=== PATIENT | male | born 1940 | race Caucasian/White ===

== ENCOUNTER 2017-05-22 11:42 | Emergency (ER) | payer OTHER ==
[~2017-05-22] VITALS: Ht 182.9 cm; Wt 99.5 kg
[~2017-05-22 11:42] MED LIST: AMLO5TAB2 PO; LISI-167 PO; LISI-170 PO; LOSA50TA2 PO
[2017-05-22] MEDS ORDERED: DIPH,PERTUSS(ACELL),TET VAC/PF 0.5 ML IM-VACC ONE ×2 (12:24→12:30)
[2017-05-22] MEDS ORDERED: L.E.T SOLUTION TP ONE ×2 (12:24→12:30)
[2017-05-22] MEDS ORDERED: BACITRACIN ZINC OINT 500U/GM, 0.9 GM ONE (13:32)
[2017-05-22 13:46] VITALS: BP 149/89
== END 2017-05-22 13:49 | disposition home or self-care (01) ==
LOC: ED 13:43
DX: S22.42XA Multiple fractures of ribs, left side, initial encounter for closed fracture (principal); S70.311A Abrasion, right thigh, initial encounter; S50.312A Abrasion of left elbow, initial encounter; S60.512A Abrasion of left hand, initial encounter; S70.312A Abrasion, left thigh, initial encounter; I10 Essential (primary) hypertension; V18.4XXA Pedal cycle driver injured in noncollision transport accident in traffic accident, initial encounter; Y93.55 Activity, bike riding; Y92.488 Other paved roadways as the place of occurrence of the external cause; Y99.8 Other external cause status
CPT/HCPCS: 71020; 90471; 90715

== ENCOUNTER 2018-07-23 07:56 | Day surgery (SDC) | payer OTHER ==
[~2018-07-23] VITALS: Ht 182.9 cm; Wt 96.4 kg
[~2018-07-23 07:56] MED LIST changes: -AMLO5TAB2 PO; +AMLO5TAB7 PO; +BUPIVACAINE/PF-EPI 0.5% 1:200K ONE; +CAYE450C4 PO; +CINN500C2 PO; +GARL10002 PO; +LOSA50TA7 PO; +NIAC500T85 PO; +Turmeric PO; +UBID100C24 PO
[2018-07-23 08:16] VITALS: BP 169/100
[2018-07-23] MEDS ORDERED: LACTATED RINGERS 1,000 ML IV SCH (08:20)
[2018-07-23] MEDS ORDERED: GABAPENTIN 300 MG CAPSULE PO ONE (08:30)
[2018-07-23] MEDS ORDERED: SCOPOLAMINE PATCH, 1.5MG PATCH.TD72 TD ONE (08:30)
[2018-07-23] MEDS ORDERED: ONDANSETRON ODT 8 MG PO ONE (08:30)
[2018-07-23] MEDS ORDERED: ACETAMINOPHEN 500 MG TABLET PO ONE (08:30)
[2018-07-23] MEDS ORDERED: FENTANYL PF 100 MCG/2ML ONE (09:06)
[2018-07-23] MEDS ORDERED: MEPERIDINE/PF 25MG/0.5ML IVPush PRN (10:30)
[2018-07-23] MEDS ORDERED: ONDANSETRON ODT 8 MG PO PRN (10:30)
[2018-07-23] MEDS ORDERED: OXYcodone 5 MG/5 ML ORAL.SOL UDC PO PRN (10:30)
[2018-07-23] MEDS ORDERED: ONDANSETRON 2MG/ML, 2ML IV PRN (10:30)
[2018-07-23] MEDS ORDERED: PROMETHAZINE 25 MG SUPP PR PRN (10:30)
[2018-07-23] MEDS ORDERED: PROMETHAZINE 25 MG/ML, 1ML IV PRN (10:30)
[2018-07-23] MEDS ORDERED: MORPHINE SULFATE 4 MG/ML, 1ML IVPush PRN (10:30)
[2018-07-23] MEDS ORDERED: FENTANYL PF 100 MCG/2ML IV PRN (10:30)
[2018-07-23] MEDS ORDERED: SUCCINYLCHOLINE 20 MG/ML, 10ML ONE (10:40)
[2018-07-23] MEDS ORDERED: ROCURONIUM 10MG/ML,5ML ONE (10:40)
[2018-07-23] MEDS ORDERED: GLYCOPYRROLATE 0.2MG/1ML, 5ML ONE (10:40)
[2018-07-23] MEDS ORDERED: DEXAMETHASONE 4 MG/ML, 1ML ONE (10:40)
[2018-07-23] MEDS ORDERED: NEOSTIGMINE 1 MG/ML, 10ML ONE (10:40)
[2018-07-23] MEDS ORDERED: ONDANSETRON 2MG/ML, 2ML ONE (10:40)
[2018-07-23] MEDS ORDERED: CEFAZOLIN 1,000 MG ONE (10:40)
[2018-07-23] MEDS ORDERED: PROPOFOL 10 MG/ML, 20ML ONE (10:40)
[2018-07-23] MEDS ORDERED: BUPIVACAINE/PF-EPI 0.5% 1:200K INFIL ONE (10:43)
== END 2018-07-23 12:30 | disposition home or self-care (01) ==
LOC: OUT 07:56
PROVIDERS: ATTEND Surgery
DX: D24.2 Benign neoplasm of left breast (principal); I10 Essential (primary) hypertension; Z85.820 Personal history of malignant melanoma of skin
CPT/HCPCS: 19120; 88304; 93005; J0330; J0690; J1100; J2405; J2704; J2710; J3010; J3490; J7120; Q0162; 88305